=== PATIENT | female | born 1995 | race Caucasian/White ===

== ENCOUNTER 2024-10-10 19:42 | Emergency (ER) | payer OTHER ==
[~2024-10-10] VITALS: Ht 167.6 cm; Wt 68.0 kg
[2024-10-10 21:18] VITALS: TEMP 97.9
[2024-10-10] MEDS ORDERED: IBUPROFEN 400 MG TABLET ONE (21:50)
[2024-10-10] MEDS ORDERED: ACETAMINOPHEN ES 500 MG TABLET ONE (21:50)
[2024-10-10] MEDS: ACETAMINOPHEN ES 500 MG TABLET PO ONE (21:54)
[2024-10-10] MEDS: IBUPROFEN 400 MG TABLET PO ONE (21:54)
[2024-10-10] MEDS ORDERED: ACET-2030 PO (22:34)
[2024-10-10] MEDS ORDERED: KETO10TA2 PO (22:34)
[2024-10-10 22:45] VITALS: BP 140/85; O2SAT 99
== END 2024-10-10 22:44 | disposition home or self-care (01) ==
LOC: ER 19:48
DX: M79.631 Pain in right forearm (principal); V59.00XA Driver of pick-up truck or van injured in collision with unspecified motor vehicles in nontraffic accident, initial encounter; Y93.89 Activity, other specified; Y92.415 Exit ramp or entrance ramp of street or highway as the place of occurrence of the external cause; Y99.8 Other external cause status
CPT/HCPCS: 73090-TC; 73130-TC